=== PATIENT | male | born 1945 | race Caucasian/White ===

== ENCOUNTER 2020-10-26 06:00 | Day surgery (SDC) | payer MEDICARE, OTHER ==
[2020-10-23 09:40] VITALS: BP 151/76
--- NOTE | 2020-10-23 09:57 | PCM.EKG ---
[facility] Test Date: 2020-10-23 Test Time: 10:55:04 Pat Name: PINKY LARA Department: Room: 330 Gender: M Lead Pl Sql Developer: JAMEL : 1945 Requested By: REJI HERCULES Order Number: [id number] Reading MD: Reji Hercules Measurements Intervals [place] Rate: 62 P: 105 OR: 200 QRS: -63 QRSD: 180 T: 86 QT: 464 QTc: 470 Interpretive Statements AV sequential or dual chamber electronic pacemaker No previous ECG available for comparison Electronically Signed On 11-05-2020 10:55:29 TENTS ASSEMBLER by Reji Hercules Please click the below link to view image of tracing.
[2020-10-23 10:17] LABS: BASOPHIL % 0.4 % (0.0-0.2); EOSINOPHIL # 0.2 10^3/uL (0.0-0.2); EOSINOPHIL % 3.7 % (0.0-5.0); LYMPHOCYTES % 18.6 % (24.0-44.0); MONOCYTES # 0.5 10^3/uL (0.3-0.8); MONOCYTES % 8.9 % (5.0-12.0); NEUTROPHIL # 3.7 10^3/uL (1.8-7.7); NEUTROPHILS % 68.2 % (41.0-85.0); PLATELET COUNT 168 10^3/uL (150-400); RED CELL DISTRIBUTION WIDTH 13.9 % (11.5-14.5)
[2020-10-23 10:47] LABS: CALCIUM 9.2 mg/dL (8.4-10.5); CARBON DIOXIDE 25.9 mmol/L (20.0-32)
--- NOTE | 2020-10-23 11:00 | DIREP ---
PROCEDURE:CHEST 2 VIEWS COMPARISON:None. INDICATIONS:PRE-OP HEART CATH, ABNORMAL STRESS TEST FINDINGS: LUNGS/PLEURA:No focal consolidation, pleural effusion, or pneumothorax. VASCULATURE:Unremarkable pulmonary vasculature. Calcified, tortuous aorta. CARDIAC:Heart size within normal limits. Status post median sternotomy. Left chest wall pacemaker. MEDIASTINUM:Normal. No visible mass or adenopathy. BONES:Degenerative change without evidence of acute osseus abnormality. OTHER:Negative. CONCLUSION: 1. No acute cardiopulmonary process. Dictated by: Alberto Maxwell MD on 10/23/2020 at 10:58 AM
[~2020-10-26] VITALS: Ht 177.8 cm; Wt 73.0 kg
[~2020-10-26 06:00] MED LIST: ALLO300T PO; ASPI-667 PO; FERR240T2 PO; FINA5TAB4 PO; FURO20TA3 PO; GLIP5TAB10 PO; LEVO50TA6 PO; LYSI500T8 PO; METO25TA4 PO; MULT1TAB13 PO; PHENERGAN PO ONE; POTA15TA9 PO; ROSU40TA PO; VALIUM PO ONE
[2020-10-26] MEDS ORDERED: GLIM4TAB8 PO (06:17)
[2020-10-26] MEDS: NS 1000ML 1,000 ML IV SCH ×3 (06:25→21:30)
[2020-10-26 06:26] VITALS: BP 154/84
[2020-10-26] MEDS ORDERED: HEPARIN ONE (06:46)
[2020-10-26] MEDS ORDERED: XYLOCAINE ONE (06:47)
[2020-10-26] MEDS ORDERED: VERSED ONE (06:47)
[2020-10-26] MEDS ORDERED: SUBLIMAZE ONE (06:47)
[2020-10-26 07:45] LABS: CALCIUM 7.8 mg/dL (8.4-10.5); CARBON DIOXIDE 24.6 mmol/L (20.0-32)
[2020-10-26] MEDS ORDERED: LASIX PO SCH (08:00)
--- NOTE | 2020-10-26 08:50 | NUR ---
PATIENT ARRIVED TO UNIT VIA BED FROM WATER QUALITY MANAGER. PROCEDURE POSTPONED PER DR DICKERSON, AT BEDSIDE. RENAL US TODAY. MAY PROCEED FOR CARDIAC CATH TOMORROW PENDING RESULTS OF RENAL US. PATIENT VERBALIZED UNDERSTANDING OF POC. ORIENTED TO UNIT/ROOM/USE OF CALL LIGHT/VISITING HOURS - AT BEDSIDE.
[2020-10-26 08:54] VITALS: BP 161/83
[2020-10-26] MEDS: SYNTHROID PO SCH ×2 (09:00→21:31)
[2020-10-26] MEDS: NS 1000ML/KCL 20MEQ 1,000 ML IV SCH ×3 (10:35→23:44)
[2020-10-26] MEDS: AMARYL PO SCH (10:37)
[2020-10-26] MEDS: ZYLOPRIM PO SCH (10:37)
[2020-10-26] MEDS: ASPIRIN PO SCH (10:37)
[2020-10-26] MEDS: PROSCAR PO SCH (10:39)
[2020-10-26] MEDS: LOPRESSER PO SCH ×2 (10:39→20:24)
--- NOTE | 2020-10-26 11:21 | HPH ---
ADMIT DATE: 10/26/2020 CHIEF COMPLAINT: Abnormal myocardial perfusion scan, acute kidney injury, diabetic, post-bypass status, admitted for IV hydration before undertaking heart catheterization. HISTORY OF PRESENT ILLNESS: The patient is a 74-year-old white male who has known history of atherosclerotic heart disease and has had multivessel coronary artery bypass surgery in [place] in 1999 and subsequently in 2012 underwent 3 stents and has a pacemaker inserted in 1999 and he came with history of dyspnea on exertion with underlying daz-xrnxgfz-mfphjllqv diabetes and mild hypertension and dyslipidemia, on rosuvastatin 40 mg once a day and was noted to have global hypoperfusion with some degree of reperfusion and global hypokinesis and 40% ejection fraction and had dyspnea on exertion, in view of his multiple stents in last evaluation in 2012 with an abnormal myocardial perfusion scan at the present time with 40% ejection fraction. The patient was advised to have a cardiac catheterization and graft angiography. He had a creatinine of 1.5 in the clinic and was told to increase his fluid intake, but creatinine went up to 1.71 and a BUN of 37. He is now on Lasix 20 mg once a day, hence admitted for 24-hour observation for IV fluid hydration to improve his kidney function and renal sonogram to assess his kidney size before undertaking parenteral radiographic contrast graft angiography. ALLERGIES: PENICILLIN. MEDICATIONS: Lysine 500 mg daily, aspirin 81 mg once a day, metoprolol 25 mg once a day, glipizide 5 mg daily, Crestor 40 mg once a day, allopurinol 300 mg once a day, Lasix 20 mg once a day, lisinopril 5 mg once a day, potassium citrate one tablet daily, Levothroid 50 mcg once a day, finasteride 5 mg once a day. PAST MEDICAL HISTORY: History of CAD, triple vessel coronary artery disease and post bypass surgery, post-triple stents and has a Biotronik pacer implanted, generator change 3 times, diabetes, dyslipidemia, hypothyroidism. No history of TIA or CVA. No history of any cancer. Past history of glaucoma in the left eye. PAST SURGICAL HISTORY: Appendectomy in 1962, rectal fissure operation in the past and pacer insertion initially in 1999, colonoscopy in 2006, hemorrhoidectomy, laparoscopic hemorrhoidectomy, kidney stones post-lithotripsy, vasectomy, cataract surgery, left leg hematoma evacuation due to injury in the past, tonsillectomy, arthroscopic knee surgery, bilateral knee surgery in the past. Generator change on his device about 3 times, last one was done [address] Koroma in [place]. History of nephrolithiasis and post-lithotripsy. REVIEW OF SYSTEMS: Reveal fatigue, weakness, shortness of breath, leg cramps. PHYSICAL EXAMINATION: GENERAL: Alert, awake, oriented. VITAL SIGNS: He is 177 cm, , BMI is low, lean and asthenic built, with 97 temperature, pulse is 62, respirations 18 and 150/76 blood pressure and 99% saturation on room air. HEENT: Unremarkable. NECK: No JVD, no carotid bruits. CHEST: Thin chest wall. LUNGS: Poor air entry bilaterally. HEART: Sounds S1 and S2 normal. Systolic murmur grade 3/6 at the left sternal border, appears to be more of an aortic sclerosis. Echo did not show any aortic stenosis. ABDOMEN: Soft, nontender, no organomegaly. EXTREMITIES: Distal pulses fairly well felt. NEUROLOGIC: No focal neuro deficit. No dependent edema. IMAGING STUDIES: EKG: AV paced rhythm, prolonged SC interval, primarily A-paced on EKG done during his stress study. IMPRESSION: Provoked myocardial ischemia, abnormal myocardial perfusion scan, acute kidney injury, diabetic, hypertension, coronary artery disease, post bypass surgery, post-pacer. PLAN: At this time, we will admit for 24 hours and IV fluids at 125 mL an hour. Repeat renal profile, renal sonogram. Once the creatinine is below 1.5, we will do cardiac catheterization. Johnson Hercules MD DR: ROSARIO/louis JOB# [id number] DAVID
[2020-10-26 12:11] VITALS: BP 143/77
--- NOTE | 2020-10-26 15:53 | DIREP ---
PROCEDURE:US KIDNEYS-BILAT COMPARISON:None. INDICATIONS:assess size of kidneys has diabetic nephropathy. TECHNIQUE:Ultrasound examination was performed of the kidneys and bladder. FINDINGS: RIGHT KIDNEY:10.1 x 6.5 x 5.7 cm. Cortex: 1.1 cm LEFT KIDNEY: 10.7 x 7.5 x 7.4 cm. Cortex: 1.1 cm BLADDER (pre-void):7.5 x 6.0 x 8.1 cm. Volume 252.5 ml BLADDER (post-void): 5.1 x 4.3 x 6.0 cm. Volume 68.2 ml MICTURATED VOLUME: 184.3 ml RIGHT KIDNEY: There is no hydronephrosis or suspicious cortical lesion. A 2.7 x 1.6 x 2.1 cm cyst is identified in the medial aspect of the mid pelvis. Nonobstructing calculi are visualized. LEFT KIDNEY: There is no hydronephrosis or suspicious cortical lesion. Nonobstructing calculi are visualized. BLADDER:Normal. Bilateral ureteral jets visualized. No visible wall thickening, mass, or calculus. OTHER:The prostate appears large in size measuring 4.9 x 4.3 x 3.3 cm, Volume 36.2 ml. CONCLUSION: 1. Nonobstructing calculi are identified in each kidney. No evidence of hydronephrosis. 2. No focal pathology in the urinary bladder itself. Bilateral ureteral jets are noted. 3. Prostate gland is enlarged. Dictated by: CLARI Physician on 10/26/2020 at 01:48 PM ac
[2020-10-26 17:13] VITALS: BP 137/82
[2020-10-26] MEDS ORDERED: CRESTOR PO ONE (19:30)
[2020-10-26 20:09] VITALS: BP 139/83
[2020-10-26 20:47] LABS: APPEARANCE,URINE CLEAR (CLEAR); BILIRUBIN,URINE NEGATIVE (NEGATIVE); UA COLOR YELLOW (YELLOW); UROBILINOGEN,URINE 0.2 (NEGATIVE)
[2020-10-26] MEDS ORDERED: CRESTOR PO SCH (21:00)
[2020-10-27] VITALS (15 sets, daily range): BP systolic 124–159; BP diastolic 56–90
[2020-10-27 04:49] LABS: CALCIUM 8.5 mg/dL (8.4-10.5); CARBON DIOXIDE 25.7 mmol/L (20.0-32)
--- NOTE | 2020-10-27 05:01 | NUR ---
0436 client's blood glucose was 67 at 0436 notified with Charge nurse that client was NPO and glucose was 67. 0437 RN gave client 60 ml of orange juice with a couple packs of sugar. 0500 rechecked BG and it was 162.
[2020-10-27] MEDS: NS 1000ML 1,000 ML IV SCH ×2 (06:00→14:00)
[2020-10-27] MEDS ORDERED: NS 1000ML 1,000 ML ONE (06:47)
[2020-10-27] MEDS ORDERED: SUBLIMAZE ONE (06:47)
[2020-10-27] MEDS ORDERED: HEPARIN ONE (06:47)
[2020-10-27] MEDS ORDERED: VERSED ONE (06:48)
[2020-10-27] MEDS ORDERED: XYLOCAINE ONE (06:48)
[2020-10-27] MEDS: NS 1000ML/KCL 20MEQ 1,000 ML IV SCH (08:00)
[2020-10-27] MEDS: AMARYL PO SCH (08:00)
[2020-10-27] MEDS: PROSCAR PO SCH (09:00)
[2020-10-27] MEDS: ASPIRIN PO SCH (09:00)
[2020-10-27] MEDS: ZYLOPRIM PO SCH (09:00)
[2020-10-27] MEDS: LOPRESSER PO SCH (09:00)
[2020-10-27] MEDS ORDERED: PHENERGAN PO ONE (11:30)
[2020-10-27] MEDS ORDERED: VALIUM PO ONE (11:30)
--- NOTE | 2020-10-27 11:50 | NUR ---
Patient left unit via stretcher to Cardiac Cryptologist.
--- NOTE | 2020-10-27 12:45 | NUR ---
PATIENT ARRIVED TO UNIT FROM PRODUCT SUPPORT CONSULTANT. R GROIN ANGIO SEAL PLACED @ 1234. POST PROCEDURE VS MONITORING INITIATED. PATIENT WITH INTERMITTENT NAPPING. AT BEDSIDE. NO ACUTE CARDIOPULMONARY CHANGES NOTED.
[2020-10-27] MEDS ORDERED: LOSA25TA12 PO (15:10)
--- NOTE | 2020-10-27 15:45 | NUR ---
SIT UP TIME: 1445 TOLERATED DIET WITHOUT ANY GI UPSET AMBULATION TIME: IN ROOM 1530 AMBULATION TIME: HALLWAY 1545 R/E/E/D/A ASSESSESSMENT R GROIN CATH SITE: DRESSING CDI.
--- NOTE | 2020-10-27 16:04 | NUR ---
PIV REMOVED WITHOUT ANY DIFFICULTY. CATHETER INTACT. AT BEDSIDE.
--- NOTE | 2020-10-27 16:15 | NUR ---
DISCHARGE INSTRUCTIONS REVIEWED WITH OPPORTUNITY FOR QUESTIONS AND ANSWERS. PATIENT DISCHARGED HOME;SELF-CARE.
--- NOTE | 2020-10-27 19:09 | CCRH ---
DATE OF SERVICE: 10/27/2020 HEART CATHETERIZATION REPORT PRECATHETERIZATION DIAGNOSES: Coronary artery disease, post bypass surgery, abnormal myocardial perfusion scan, chronic kidney disease, nephrolithiasis, benign prostatic hypertrophy, history of congestive heart failure, AV sequential pacer, hypertension, hypertensive heart disease in view of abnormal myocardial perfusion scan, heart catheterization done to assess for ischemic substrate. POSTCATHETERIZATION DIAGNOSES: Left main was 100% occluded. LAD was 100% occluded. The NEGRON graft to the LAD was patent, but beyond the insertion of the graft, the LAD itself was a very small caliber vessel with mild diffuse atherosclerosis, but no discrete flow obstructive lesion was documented in the LAD after the insertion of the NEGRON graft. Circumflex is 100% occluded at the point of origin. The saphenous vein graft to the obtuse marginal branch was fully patent, filling the obtuse marginal branch and the jena circumflex and it was inserted in the prebifurcation area filling the whole circumflex system. Right coronary artery was 100% occluded. The saphenous vein graft over the right coronary artery was fully patent, filling the distal right coronary artery with some luminal irregularity in the distal right coronary artery. Left ventricle is normal in size with good wall contractility, ejection fraction of 55%. ANESTHESIA: 2% lidocaine. PREOPERATIVE MEDICATIONS: Phenergan 25 mg p.o., Valium 2.5 mg p.o., Versed 1 mg IV, fentanyl 25 mcg IV. ANTICOAGULATION: Heparin 2000 units intra-arterially, 2000 units in the flush solution, 1000 units in the dye solution. Dye used Visipaque, total amount 150 mL. CATHETERS: JL4 6-Citizen Of [place], JR4 6-Citizen [place] angled pigtail catheter. ARTERIAL TIME: 13 minutes. FLUOROSCOPIC TIME: 5.5 minutes. PROCEDURES: Left heart catheterization, bilateral selective coronary arteriography, left ventriculography, saphenous vein graft cineangiography, NEGRON graft cineangiography, Angio-Seal deployed. Hemostasis achieved. Under local anesthesia, right femoral artery was punctured percutaneously by arterial needle, guide wire passed in right femoral artery, 6-Citizen Of [place] Cordis sheath introduced, side port of the sheath used for femoral arterial pressure monitoring. Sheath anchored with suture. Left Rose catheter introduced over guide wire into ascending aorta left coronary artery cannulated and left coronary angiography performed in [place]UR[place]DI[place] and GIBSON projections with craniocaudal applications to visualize all branches. Left catheter exchanged for right coronary catheter and right coronary angiography performed in [place]DI[place] and GIBSON. This catheter exchanged for 6-Citizen Of [place] pigtail catheter and catheter crossed the aortic valve and left ventricular LVEDP measured and LV gram performed in 30 degrees GIBSON view with 30 mL Omnipaque dye and panning of descending aorta attempted. Patient tolerated procedure well. No complications of procedure. Angio-Seal deployed for hemostasis. LVEDP is 12 mm, LV pressure is 168/12, femoral artery pressure 150/76. No gradient across the aorta on pullback of the central catheter. FINAL CONCLUSION: A 100% occlusion of all 3 major jena epicardial vessels at the point of origin. Patent NEGRON graft to the LAD with distal LAD showing diffuse atherosclerosis and patent vein graft to the obtuse marginal branch and patent vein graft to the distal right coronary artery with intact LV systolic function. RECOMMENDATIONS: Optimization of medical therapy. Incidental finding was that there were 2 active fixation leads in the ventricle and one of the leads showed no fracture with subclavian crush on fluoroscopy and cineangiography on visualizing the device in the left infraclavicular region and the atrial lead is positioned more laterally, but it is functional. Atrial pacing is documented and the 2 ventricular leads were very close to each other in the ventricle. One needs to be concerned about noise and the patient will be seen back in the office in 2 weeks. Jthand MD ANKIT Hercules: ROSARIO/louis JOB# [id number]
--- NOTE | 2020-10-27 19:16 | DSH ---
DATE OF DISCHARGE: 10/27/2020 FINAL DIAGNOSES: Abnormal myocardial perfusion scan, hypertension, coronary artery disease, post bypass surgery, provoked ischemic substrate, pacemaker, diabetes, acute kidney injury, admitted for hydration to improve kidney function, nephrolithiasis, benign prostatic hypertrophy. Please refer to my history and physical to the point of my impression. HOSPITAL COURSE: The patient is a 74-year-old white male who had a creatinine of 1.5 and has CAD and post bypass surgery over 20 years ago and underwent a perfusion study in the office, which showed suggestion of mild global hypoperfusion with some degree of reversibility and ischemic substrate and had LV ejection fraction around 45-46% and he had symptoms of dyspnea and shortness of breath and was atrially pacing and had 2 ventricular leads with one fractured and atrial lead, which is functional with underlying atrial pacing and had significant ST depression and his perfusion scan was abnormal. His creatinine was 1.5 in the office. When he came for cardiac catheterization and graft angiography, his creatinine has jumped to 1.73, BUN was elevated to 40. There was acute kidney injury. He was hydrated, creatinine came up to 1.65 and Visipaque was used and cardiac catheterization was done on 10/27/2020 and his left main was 100% occluded distally with total occlusion of the LAD and circumflex and right coronary occluded at the ostium. NEGRON to the LAD graft was fully patent with distal LAD showing diffuse atherosclerosis and vein graft to the circumflex obtuse marginal branch was fully patent and vein graft to the distal right coronary artery was patent and LV function was intact. The patient was well hydrated at the present time, he is dismissed home on losartan 25 mg once a day, which was added along with allopurinol 300 mg once a day, aspirin 81 mg once a day, ferrous gluconate 240 mg daily for his underlying iron deficiency, finasteride 5 mg once a day, Lasix 20 mg once a day, glimepiride 4 mg once a day, Levothroid 50 mcg once a day, lysine 500 mg once a day, metoprolol 25 mg twice a day, multivitamin once a day, potassium 10 mEq once a day, Crestor 40 mg once a day, to see him back in the clinic in 2 weeks and we will do a device check and clinical assessment. Angio-Seal was deployed. Hemostasis was achieved. We will probably repeat the creatinine on post discharge. Johnson Hercules MD DR: ROSARIO/louis JOB# [id number]
== END 2020-10-27 15:07 | disposition home or self-care (01) ==
LOC: SDC 06:00 → UNDOADMOB 07:49 → MS 07:49 → SDC 10-27 15:07 → UNDODISOB 10-27 16:15
PROVIDERS: ATTEND Specialist
DX: I25.10 Atherosclerotic heart disease of native coronary artery without angina pectoris (principal); I25.82 Chronic total occlusion of coronary artery; E11.22 Type 2 diabetes mellitus with diabetic chronic kidney disease; I13.0 Hypertensive heart and chronic kidney disease with heart failure and stage 1 through stage 4 chronic kidney disease, or unspecified chronic kidney disease; N18.9 Chronic kidney disease, unspecified; I50.32 Chronic diastolic (congestive) heart failure; E78.5 Hyperlipidemia, unspecified; E03.9 Hypothyroidism, unspecified; N40.0 Benign prostatic hyperplasia without lower urinary tract symptoms; Z88.1 Allergy status to other antibiotic agents; Z88.0 Allergy status to penicillin; Z79.82 Long term (current) use of aspirin; Z79.84 Long term (current) use of oral hypoglycemic drugs; Z79.890 Hormone replacement therapy; Z98.890 Other specified postprocedural states; Z95.1 Presence of aortocoronary bypass graft; Z82.49 Family history of ischemic heart disease and other diseases of the circulatory system; Z80.9 Family history of malignant neoplasm, unspecified; Z90.49 Acquired absence of other specified parts of digestive tract; Z90.89 Acquired absence of other organs; Z87.442 Personal history of urinary calculi; Z98.52 Vasectomy status
CPT/HCPCS: 36415 ×3; 71046; 76770; 80048; 80053 ×2; 81003; 82948 ×6; 84550; 85025; 85610; 85730; 93005; 93459; 99152; C1760; C1894 ×3; J1644 ×4; J2250 ×2; J3010 ×2; J7030 ×4; Q9967; G0378; Q9966

== ENCOUNTER 2022-07-05 13:36 | Inpatient (IN) | payer MEDICARE, OTHER ==
[~2022-07-05] VITALS: Ht 177.8 cm; Wt 76.5 kg
[~2022-07-05 13:36] MED LIST changes: -NITR0.4T26 SL; -RANO500T2 PO
[2022-07-05] MEDS ORDERED: NS 1000ML 1,000 ML ONE ×2 (13:58→14:19)
[2022-07-05] MEDS ORDERED: HEPARIN ONE (14:19)
[2022-07-05] MEDS ORDERED: SUBLIMAZE ONE (14:20)
[2022-07-05] MEDS ORDERED: VERSED ONE (14:20)
[2022-07-05] MEDS ORDERED: XYLOCAINE ONE (14:20)
--- NOTE | 2022-07-05 14:23 | PCM.EKG ---
[facility] Test Date: 2022-07-05 Test Time: 14:16:58 Pat Name: PINKY LARA Department: Room: 332 A Gender: M Dumpman: : 1945 Requested By: REJI DICKERSON Order Number: [id number] Reading MD: Measurements Intervals [place] Rate: 76 P: NV: 366 QRS: 73 QRSD: 91 T: -89 QT: 398 QTc: 448 Interpretive Statements Atrial-paced rhythm Repol abnrm, prob ischemia, anterolateral lds Baseline wander in lead(s) V3 Compared to ECG 10/23/2020 10:55:04 Early repolarization now present Possible ischemia now present AV dual-paced complex(es) or rhythm no longer present Please click the below link to view image of tracing.
--- NOTE | 2022-07-05 14:30 | NUR ---
admit note. Pt to rm 332, oriented to rm. changed into gown. to bed, IV started 20 g to r wrist x1 attempt aseptically, NS infusing per pump at 75ml/hr per written order. Tele applied after EKG obtained by RT. History obtained. at bedside and aware of plan of care.
[2022-07-05 14:42] VITALS: BP 121/65
[2022-07-05] MEDS ORDERED: RANEXA PO STA (17:01)
[2022-07-05] MEDS ORDERED: NS 1000ML 1,000 ML IV SCH (17:30)
[2022-07-05] MEDS ORDERED: NS 1000ML/KCL 20MEQ 1,000 ML IV SCH (18:30)
[2022-07-05] MEDS: NS 1000ML/KCL 20MEQ 1,000 ML IV SCH (18:30)
[2022-07-05 19:45] VITALS: BP 107/51
--- NOTE | 2022-07-05 23:25 | HPH ---
DICTATOR NAME: Johnson Hercules MD CHIEF COMPLAINT: Chest heaviness, tightness, ongoing chest pain for several days. HISTORY OF PRESENT ILLNESS: The patient is a 76-year-old white male with known history of PAD and had multivessel coronary artery bypass surgery. He underwent cardiac catheterization in 2020, and at that time, his grafts were patent, but he had critical nome disease with total occlusion of all his nome vessels and his ejection fraction was around 40% and he came in on the of this month to my office with chest heaviness and tightness, was given Ranexa. His troponin was negative and he came for a perfusion study today and he had inferior ischemic substrate and was having significant chest pain in spite of him being on Ranexa and his chest pain had lasted several hours. In view of unstable angina manifestation, he was admitted in observation to undergo cardiac catheterization, but his creatinine was 2, hence the cause of worsening kidney function with him having bilateral nephrolithiasis without any obstructive findings and prostate enlargement. His creatinine was high and he was to be given IV hydration to improve the creatinine before undertaking heart catheterization if creatinine improved on 07/06/2022. ALLERGIES: PENICILLIN. MEDICATIONS: He is insulin-dependent diabetic, on Levemir 15 units daily; losartan 25 mg once a day; glimepiride 4 mg once a day; aspirin 81 mg once a day; Crestor 40 mg once a day; Lasix 20 mg once a day; lisinopril 20 mg once a day; potassium 10 mEq once a day; Levothroid 50 mcg once a day; finasteride 5 mg once a day; metoprolol 25 mg daily. PAST MEDICAL HISTORY: History of chronic stable angina and now having unstable angina post-bypass status, hypertension, hypertensive heart disease, chronic systolic heart failure and he does have a pacemaker and is diabetic. PAST SURGICAL HISTORY: Other history, he had angioplasty before he had bypass surgery. Bypass was done in [place], stents were done in 2012, pacer was inserted in 1999. Has had post-appendectomy, rectal fissure operation, hemorrhoidectomy, kidney stones, cataract surgery, left leg hematoma evacuation due to the injury in the past, eye surgery, arthroscopic knee surgery, bilateral knee surgery. Pacer generator change 3 years ago, it was done in [place]. SOCIAL HISTORY: He is a nonsmoker. No alcohol abuse. FAMILY HISTORY: Mother, sister, both are diabetic. Grandparents were diabetic also and hypertensive, cancer runs in the family. REVIEW OF SYSTEMS: Revealed the difficulty in mobility and fatigue, shortness of breath, chest heaviness, tightness. PHYSICAL EXAMINATION: GENERAL: He appeared ill and he was having chest pain when I saw him today. Lean, thin, aesthetically built. VITAL SIGNS: He is 170 pounds, 5 feet 10 inches and 130/76 blood pressure, respirations 16, temperature 97.4. HEENT: Unremarkable. NECK: No JVD, no carotid bruits. LUNGS: Showed poor air entry bilaterally. CHEST: He has had increased AP diameter, barrel-shaped chest. RESPIRATORY: Chest expansion. HEART: S1, S2 normal. ABDOMEN: Soft, nontender, no organomegaly. EXTREMITIES: Distal pulses were poorly felt. NEUROLOGIC: No focal neuro deficit [] documented. DIAGNOSTIC DATA: An EKG has shown AV paced rhythm, poor R-wave progression V1 through V6, nonspecific ST-T wave changes. [] and 58% V paced on the device check recently. IMPRESSION: Crescendo angina, coronary artery disease, post bypass surgery, abnormal myocardial perfusion scan, inferior ischemia, acute kidney injury, bilateral nephrolithiasis. PLAN: At this time, admit the patient in the hospital. We will start IV hydration to improve his kidney function and do perform cardiac catheterization. Further management depending on the clinical course. Johnson Hercules MD DR: ROSARIO/PALAK/BROOKE/MELISSA TID: [id number] RECEIPT: [id number]
[2022-07-05] MEDS: LOPRESSER PO SCH (23:31)
[2022-07-06] VITALS: BP 140/75
[2022-07-06] MEDS: NS 1000ML/KCL 20MEQ 1,000 ML IV SCH ×3 (03:48→18:30)
[2022-07-06 03:52] VITALS: BP 119/72
[2022-07-06] MEDS: LOPRESSER PO SCH ×2 (09:21→20:20)
[2022-07-06] MEDS: PROSCAR PO SCH (09:21)
[2022-07-06] MEDS: ASPIRIN PO SCH (09:21)
[2022-07-06 09:49] VITALS: BP 139/76
[2022-07-06] MEDS: ZYLOPRIM PO SCH (10:24)
[2022-07-06] MEDS: RANEXA PO SCH ×2 (10:24→20:20)
[2022-07-06] MEDS: SYNTHROID PO SCH (10:24)
--- NOTE | 2022-07-06 11:29 | NUR ---
DISCHARGE PLAN - CLINICALS TO PCP ROBEL LEVY NP [email or web address] AND VISITED WITH PATIENT ABOUT DISCHARGE PLANS, NEEDS, AND GOALS THIS AM. PATIENT CURRENTLY [email or web address] WITH SPOUSE IN [place] AND IS IND WITH ALL ADL'S AND ACTIVE AND DRIVES DAILY. PATIENT HAS [email or web address] AND DENIES NEED FOR ANY OTHER DME OR SERVICES OFFERED. PATIENT IS SCHEDULED FOR A HEART CATH@10 AM THIS MORNING WITH DR DICKERSON. PATIENT REPORTS THAT HIS PCP IS ROBEL IN [email or web address]. CM OFFERED TO SET PATIENT UP WITH A F/U APPT AND PATIENT DECLINES. PATIENT AGREEABLE FOR CM TO FAX PATIENT'S CLINICALS AFTER DISCHARGE. PATIENT SPOUSE SIGNS [facility] CHOICE LETTER OF THE SAME FOR CHART. PATIENT INSTRUCTED IF ANYTHING CHANGES TO LET NURSE KNOW AND CM WILL COME BACK AND VISIT. CM CONTACTED [facility] AND PATIENT'S PCP IS ROBEL LEVY NP. FAX NUMBER OBTAINED #[phone] TO FAX CLINICALS AFTER DISCHARGE. Addendum: 07/07/22 at 1247 by Irma Brasher RN,Case Managemen ADDIE CM FAXED PATIENT'S CLINICALS TO ROBEL LEVY [phone]. INFORMED OF PATIENT'S HEART CATH AND IF F/U APPT NEEDED FOR OFFICE TO CONTACT PATIENT. FAX CONFIRMATION CONFIRMED COMPLETE.
[2022-07-06 11:40] LABS: CARBON DIOXIDE 26.5 mmol/L (20.0-32)
--- NOTE | 2022-07-06 11:53 | NUR ---
STATUS PT'S CREATININE STILL ABOVE 1.7, THIS NURSE RELAYED INFORMATION TO DR. DICKERSON VIA TELEPHONE, AND RECEIVED ORDERS TO GO AHEAD AND FEED PT LUNCH, AND CANCEL HEART CATH FOR TODAY.
[2022-07-06 16:03] VITALS: BP 126/75
[2022-07-06 19:55] VITALS: BP 132/67
[2022-07-06] MEDS ORDERED: CRESTOR PO SCH (21:00)
[2022-07-07] VITALS: BP 126/65
[2022-07-07] MEDS: NS 1000ML/KCL 20MEQ 1,000 ML IV SCH (02:30)
--- NOTE | 2022-07-07 02:59 | PNH ---
DATE: 07/06/2022 DICTATOR NAME: Johnson Hercules MD SUBJECTIVE: The patient came with unstable angina manifestations, CAD post-bypass surgery, has got a pacemaker and his creatinine was over 2, was given IV hydration and creatinine now is about 1.71. It has slightly improved from this morning to 1.77. We will probably continue hydration and bring it further down because he is insulin-dependent diabetic and will do cardiac catheterization and assess his coronary anatomy since he is post-bypass with significant unstable angina manifestations for several days. We will probably do the catheterization on 07/07/2022. OBJECTIVE: VITAL SIGNS: Stable, 98 temperature, pulse 70, respirations 18, 139/76 blood pressure. HEENT: Unremarkable. CHEST: Emphysematous chest. LUNGS: Poor air entry bilaterally. HEART: Sounds normal. LABORATORY DATA: Rest of the labs are acceptable. His ____ was 133. We will continue IV hydration and repeat basic profile on ____. Johnson Hercules MD DR: ROSARIO/EKT/DEE DEE TID: [id number] RECEIPT: [id number]
[2022-07-07 04:47] VITALS: BP 134/79
[2022-07-07 05:17] LABS: CARBON DIOXIDE 26.3 mmol/L (20.0-32)
[2022-07-07] MEDS: SYNTHROID PO SCH (05:48)
[2022-07-07 07:58] VITALS: BP 146/79
[2022-07-07] MEDS ORDERED: RANO500T2 PO (08:18)
[2022-07-07] MEDS: ASPIRIN PO SCH (08:24)
[2022-07-07] MEDS: LOPRESSER PO SCH (08:24)
[2022-07-07] MEDS: PROSCAR PO SCH (08:24)
[2022-07-07] MEDS: ZYLOPRIM PO SCH (08:24)
[2022-07-07] MEDS: RANEXA PO SCH (08:24)
[2022-07-07] MEDS ORDERED: NITR0.4T26 SL (09:52)
--- NOTE | 2022-07-07 09:52 | NUR ---
ROOM AIR CHALLENGE CONDUCTED PAT ON 1LPM NC - SPO2 96% PAT TAKEN OFF O2 PAT WAS AMBULATED - SPO2 DROPPED TO 82% PAT INSTRUCTED TO SIT DOWN AND TAKE A FEW BREATHS - SPO2 GEOVANNA TO 85%; SPO2 MAINTAINED AT 85% WHILE AT REST PAT PLACED BACK ON 1 LPM NC - SPO2 GEOVANNA TO 93% PAT STATED NO SOB OCCURRED DURING ROOM AIR CHALLENGE Addendum: 07/07/22 at 0955 by Cathy Osei RRT, Contract RT Amended: Links added.
--- NOTE | 2022-07-07 10:25 | NUR ---
DISCHARGE DISCHARGE INSTRUCTIONS GIVEN BOTH VERBALLY AND WRITTEN AT THIS TIME. PATIENT EDUCATED OVER NEW RX'S, FOLLOW UP WITH TUAN, PATIENT VERBALIZES UNDERSTANDING, WITH NO QUESTIONS OR CONCERNS NOTED. IV REMOVED VIA ASEPTIC TECHNIQUE, CATH TIP STILL INTACT, PATIENT TOLERATED WELL. PATIENT AMBULATED OFF UNIT WITH NURSING X1 TO PRIVATE AUTO ACCOMPANIED BY SPOUSE. RELINQUISHED CARE OF PATIENT.
[2022-07-07 10:27] VITALS: BP 146/79
--- NOTE | 2022-07-08 09:58 | DSH ---
DATE OF DISCHARGE: 07/07/2022 DICTATOR NAME: Johnson Hercules MD OUTPATIENT OBSERVATION IMPRESSION: Abnormal myocardial perfusion scan, CAD, post-bypass surgery, unstable angina, chronic renal failure, bilateral nephrolithiasis, nonobstructive, prostatic hypertrophy, cardiac catheterization canceled because of inability to improve renal function with IV fluid infusion, diabetes mellitus, hypertension, hypertensive heart disease. Please refer to my physical to the point of my impression. HOSPITAL COURSE: The patient is a 76-year-old white male who had bypass surgery several years ago and he has a pacemaker also and he presented with significant history of angina last week, was given Ranexa and then he continued to have chest heaviness, tightness troponin was negative and his grafts were open last year and in view of ongoing refractory angina, was admitted, but his creatinine was over 2 and was given IV hydration on 07/05/2022, continued through 07/06/2022 and his creatinine improved to 1.78 and in view of his diabetic status with nephrolithiasis and prostatic hypertrophy and possible obstructive uropathy, I did not feel inclined to do a cardiac catheterization at this time and sent him home and check with his urologist and once the obstructive uropathy is improved, maybe his creatinine will come down and in the diabetic status, will probably need to be having around 1.5 or a declining trend before cardiac catheterization is considered and he was sent home on nitroglycerin on p.r.n. basis and Ranexa 500 mg twice a day, allopurinol 300 mg once a day, aspirin 81 mg once a day; ferrous gluconate 240 mg once a day, finasteride 5 mg once a day, Lasix 20 mg every 48 hours, glimepiride 4 mg once a day, Levothroid 50 mcg once a day, losartan 25 mg once a day, lysine 500 mg once a day, metoprolol 25 mg twice a day, multivitamin once a day, potassium 1 tablet daily, Crestor 40 mg once a day and he will check back in the clinic next week and oral p.o. fluids being forced, will have an appointment with a urologist and will see me back in the next week and we will repeat the renal profile. Johnson Hercules MD DR: ROSARIO/THONY CALLE: [id number] RECEIPT: [id number]
== END 2022-07-07 10:28 | disposition home or self-care (01) | DRG 303 ==
LOC: MS 13:36 → OBSVTOIN 13:36
PROVIDERS: ADMIT Specialist; ATTEND Specialist
DX: I25.110 Atherosclerotic heart disease of native coronary artery with unstable angina pectoris (principal); N17.9 Acute kidney failure, unspecified; I50.22 Chronic systolic (congestive) heart failure; N20.0 Calculus of kidney; E11.9 Type 2 diabetes mellitus without complications; I11.0 Hypertensive heart disease with heart failure; N40.0 Benign prostatic hyperplasia without lower urinary tract symptoms; Z79.4 Long term (current) use of insulin; Z83.3 Family history of diabetes mellitus; Z87.442 Personal history of urinary calculi; Z95.0 Presence of cardiac pacemaker; Z95.1 Presence of aortocoronary bypass graft; Z90.49 Acquired absence of other specified parts of digestive tract; Z79.899 Other long term (current) drug therapy
CPT/HCPCS: 36415; 80048; 80053; 82948; 93005; C1894; G0378; J1644; J2250; J3010; J7030

== ENCOUNTER → 2022-07-05 | Outpatient (CLI) | payer MEDICARE, OTHER ==
[~2022-07-05] MED LIST changes: +GLIM4TAB8 PO; +LOSA25TA12 PO; +NITR0.4T26 SL; -PHENERGAN PO ONE; +RANO500T2 PO; -VALIUM PO ONE
[2022-07-05 13:24] LABS: BASOPHIL % 0.3 % (0.0-0.2); EOSINOPHIL # 0.1 10^3/uL (0.0-0.2); EOSINOPHIL % 1.5 % (0.0-5.0); LYMPHOCYTES # 0.77 10^3/uL1 (1.0-4.8); LYMPHOCYTES % 11.3 % (24.0-44.0); MEAN CORP HGB 30.8 pg (26-34); MONOCYTES # 0.7 10^3/uL (0.3-0.8); MONOCYTES % 10.3 % (5.0-12.0); NEUTROPHIL # 5.2 10^3/uL (1.8-7.7); NEUTROPHILS % 76.5 % (41.0-85.0); PLATELET COUNT 163 10^3/uL (150-400); RED CELL DISTRIBUTION WIDTH 13.6 % (11.5-14.5)
[2022-07-05 14:03] LABS: CARBON DIOXIDE 29.6 mmol/L (20.0-32)
== END | disposition home or self-care (01) ==
LOC: NPLAB 13:16
PROVIDERS: ATTEND Specialist
DX: I10 Essential (primary) hypertension (principal); E11.9 Type 2 diabetes mellitus without complications; R07.9 Chest pain, unspecified; Z79.899 Other long term (current) drug therapy
CPT/HCPCS: 36415; 80053; 80061; 82306; 83036; 84436; 84443; 84484; 85025; 86140

== ENCOUNTER 2022-08-05 07:00 | Day surgery (SDC) | payer MEDICARE, OTHER ==
[2022-08-02 11:22] VITALS: BP 125/67
[2022-08-02 12:01] LABS: BASOPHIL % 0.4 % (0.0-0.2); EOSINOPHIL # 0.1 10^3/uL (0.0-0.2); EOSINOPHIL % 1.2 % (0.0-5.0); LYMPHOCYTES # 1.06 10^3/uL1 (1.0-4.8); LYMPHOCYTES % 15.7 % (24.0-44.0); MEAN CORP HGB 30.7 pg (26-34); MONOCYTES # 0.6 10^3/uL (0.3-0.8); MONOCYTES % 8.9 % (5.0-12.0); NEUTROPHILS % 73.5 % (41.0-85.0); PLATELET COUNT 178 10^3/uL (150-400)
--- NOTE | 2022-08-04 18:40 | HPH ---
ADMIT DATE: 08/05/2022 DICTATOR NAME: Johnson Hercules MD CHIEF COMPLAINT: Abnormal myocardial perfusion scan, history of crescendo angina, coronary artery disease, post bypass surgery. For cardiac catheterization, was admitted previously with a creatinine of over 2 and that come down to 1.67 and fur ironer given okay to undergo catheterization with IV contrast dye. HISTORY OF PRESENT ILLNESS: The patient is a 76-year-old white male with known history of CAD post-multivessel bypass surgery and he had a catheterization done in 10/2020 and his grafts were patent. EF was normal. Has a pacer also and the pacer check was acceptable. At the present time, he has been having chest heaviness, tightness and was needed a cardiac catheterization and perfusion scan is abnormal with multi-segmental ischemia at the present time. His creatinine is normal and he will undergo cardiac catheterization on 08/05/2022. ALLERGIES: PENICILLIN. MEDICATIONS: Ranexa 1 g twice a day, insulin-dependent diabetic, Levemir 15 units daily, losartan 25 mg once a day, glimepiride 2 mg once a day, lysine 500 mg once a day, aspirin 81 mg once a day, Crestor 40 mg once a day, allopurinol 300 mg once a day, Lasix 20 mg once a day, potassium 10 mEq once a day, Levothroid 50 mcg once a day, finasteride 5 mg once a day, metoprolol 25 mg once a day. PAST MEDICAL AND SURGICAL HISTORY: CAD post bypass surgery, hypertension, hypertensive heart disease, chronic systolic heart failure, pacemaker, insulin-dependent diabetes mellitus and he has a Biotronik device, his grafts were patent a year ago, history of angioplasty, heart surgery in 1999 in [place], [place], cardiac stents in 2012 and pacer insertion in 1999, colonoscopy in 1962, post-appendectomy 1962, rectal fissure operation in the past, hemorrhoidectomy, laparoscopy to be done, kidney stone, vasectomy, cataract surgery, left leg hematoma evacuation due to the injury in the past, eye surgery, tonsillectomy, arthroscopic knee surgery, bilateral knee surgery in the past, generator change 3 times on the device. REVIEW OF SYSTEMS: Chest pain, shortness of breath. PHYSICAL EXAMINATION: VITAL SIGNS: He has got a birthmark on his left side of the face and 5 feet 10 inches, 168 pounds, 120/70 blood pressure, pulse is 60, respirations 16 and 97.5 temperature and 24.1 BMI. GENERAL: Lean, thin, aesthetically build. HEENT: Unremarkable except a birthmark. NECK: No JVD. No definite carotid bruits. LUNGS: Showed poor air entry bilaterally. HEART: Sounds normal. ABDOMEN: Soft, nontender, no organomegaly. EXTREMITIES: Distal pulses fairly well felt. NEUROLOGIC: No focal neuro deficit is documented. IMPRESSION: Abnormal myocardial perfusion scan, crescendo angina, hypertension, diabetes, post-bypass status, history of chronic kidney disease, improved with a creatinine of 1.67. PLAN: Cardiac catheterization on 08/05/2022. Johnson Hercules MD DR: ROSARIO/JHONNY/JANIS TID: [id number] RECEIPT: [id number]
[2022-08-05] VITALS (10 sets, daily range): BP systolic 119–134; BP diastolic 62–91
[~2022-08-05] VITALS: Ht 177.8 cm; Wt 76.5 kg
[~2022-08-05 07:00] MED LIST changes: +INSU100V13 SQ; +NITR0.4T26 SL; +NS 1000ML 1,000 ML ONE; +PHENERGAN ONE; +RANO500T2 PO; +VALIUM ONE
[2022-08-05] MEDS ORDERED: NS 1000ML 1,000 ML ONE (07:59)
[2022-08-05] MEDS ORDERED: HEPARIN ONE (07:59)
[2022-08-05] MEDS ORDERED: XYLOCAINE 2% 5ML VIAL ONE (07:59)
[2022-08-05] MEDS ORDERED: SUBLIMAZE ONE (08:00)
[2022-08-05] MEDS ORDERED: VERSED ONE (08:00)
[2022-08-05] MEDS ORDERED: VALIUM PO ONE (08:00)
[2022-08-05] MEDS ORDERED: NS 1000ML 1,000 ML IV SCH (08:00)
[2022-08-05] MEDS ORDERED: PHENERGAN PO ONE (08:00)
[2022-08-05] MEDS ORDERED: TYLENOL PO PRN (11:30)
[2022-08-05] MEDS ORDERED: D5W-1/2 NS/KCL 20MEQ 1,000 ML IV SCH (11:30)
[2022-08-05] MEDS ORDERED: NORCO 5MG PO PRN (11:30)
[2022-08-05] MEDS ORDERED: RESTORIL PO PRN (11:30)
[2022-08-05] MEDS ORDERED: NITROSTAT SL SCH (11:30)
[2022-08-05] MEDS ORDERED: SUBLIMAZE IV PRN (11:30)
[2022-08-05] MEDS ORDERED: COZAAR PO SCH (11:30)
[2022-08-05] MEDS ORDERED: KEFLEX PO SCH (15:00)
[2022-08-05] MEDS ORDERED: RANEXA PO SCH (21:00)
[2022-08-05] MEDS ORDERED: LOPRESSER PO SCH (21:00)
--- NOTE | 2022-08-06 00:26 | OPH ---
DATE OF SURGERY: 08/05/2022 DICTATOR NAME: Johnson Hercules MD PRECATHETERIZATION DIAGNOSES: Abnormal myocardial perfusion scan with lateral and anterior wall ischemic substrate with history of coronary artery disease with multivessel coronary artery bypass surgery with insulin-dependent diabetes mellitus, hypertension, dyslipidemia, having significant crescendo angina, almost refractory angina on optimal medical therapy, assess for severity of coronary artery disease. POSTCATHETERIZATION DIAGNOSES: Diffuse narrowing of the left main was noted. LAD was 100% occluded proximally. The left internal mammary arterial conduit was fully patent, filling the whole distal LAD, which had some tortuosity, but no significant flow restriction was documented. The first diagonal branch, 100% occluded. The saphenous vein graft to the first diagonal branch was showing diffuse narrowing and it was a small caliber graft with a small caliber diagonal branch, but the filling was still noted and the flow was best described with ARIEL 1 to ARIEL 2 flow. Circumflex 100% occluded proximally. The saphenous vein graft to the circumflex was patent with proximal concentric 30-40% narrowing with luminal irregularity along the course of the graft with good filling of the first obtuse marginal branch and part of the little shell tribe circumflex branch. Right coronary artery is 100% occluded proximally. Saphenous vein graft to the right coronary artery was a large graft with some luminal irregularity in the body of the graft with good filling of the posterior descending branch and retrograde filling of the distal right coronary artery. The left ventricle is mildly dilated with distal anterior apical and adjacent inferior hypokinesis with ejection fraction of 40-45% with left ventricular end-diastolic pressure of 0-5 mm. No mitral regurgitation was noted. ANESTHESIA: 2% lidocaine. PREOPERATIVE MEDICATIONS: Phenergan 25 mg p.o., Valium 2.5 mg p.o., fentanyl 25 mcg IV, Versed 1 mg IV. ANTICOAGULATION: Heparin 2000 units in the flush solution, 1000 units in the dye solution, 2000 units intra-arterially. DYE USED: Omnipaque. Total amount 157 mL. CATHETERS: JL4 6-Barbadian, JR4 6-Barbadian, 5-Barbadian right JAKE catheter 5-Barbadian AR modified catheter, 6-Barbadian angled pigtail catheter. ARTERIAL TIME: 23 minutes. FLUOROSCOPY TIME: 8.5 minutes. PROCEDURES: Left heart catheterization, bilateral selective coronary arteriography, left ventriculography, and saphenous vein graft cineangiography and NEGRON graft cineangiography by right femoral Rose approach. NARRATION OF THE PROCEDURE: Under local anesthesia, right femoral artery was punctured percutaneously and a guidewire was passed in the right femoral artery and 7-Barbadian Cordis sheath was introduced and side port of the sheath used for continuous monitoring of femoral artery pressure. Subsequently, a 2000 units of Heparin intra-arterially was given and a JR4 6-Barbadian right coronary catheter was initially mounted over a guidewire and navigated across the ascending aorta and initially left subclavian artery was cannulated and left internal mammary graft was attempted to be cannulated selectively and NEGRON graft cineangiography was performed in AP and GIBSON projection. This catheter was then placed in the right coronary artery and right coronary arteriography was done followed by a saphenous vein graft and cineangiography to the right coronary artery and saphenous vein graft cineangiography to the diagonal branch and saphenous vein graft cineangiography to the obtuse marginal branch with the same catheter and subsequently a JAKE catheter was used for better visualization of the saphenous vein graft to the right coronary artery and JR5 modified 2 catheter was utilized for better visualization of the saphenous vein graft to the obtuse marginal branch, both in IGBSON and MING projections. After all this catheters, the exchange was made with a JL4 6-Barbadian, left coronary artery and left coronary artery was cannulated and left coronary arteriography performed in AP and GIBSON projection. Two shocks were taken after that, the catheter was exchanged with 6-Barbadian angled pigtail catheter and a pigtail was navigated across the aortic valve and hemodynamics were measured and left ventriculography was performed in 30-degree GIBSON projection with 30 mL of Isovue at 12 mL per second at 600 psi. The patient tolerated the procedure well. The pullback pressures were obtained. Angio-Seal deployed in the right femoral artery. No complication of the procedure. FINAL CONCLUSION: LVEDP is 0-5 mm, LV pressure 127/5, femoral artery pressure 120/46 with a mean of 73. No gradient across the aorta. FINAL CONCLUSION: Left main diffuse disease. LAD is 100% occluded. Circumflex 100% occluded. Diagonal branch 100% occluded. Right coronary artery is 100% occluded. All arteries were occluded proximally. NEGRON graft to the LAD patent, vein graft to the diagonal, diffuse disease of the graft along with diffuse disease of the diagonal, very poor flow was documented. Obtuse marginal branch was patent with proximal 40% narrowing. Saphenous vein graft to the right coronary artery is patent with full visualization of the posterior descending branch. LV systolic dysfunction of the apex and adjacent inferior wall 45% ejection fraction. RECOMMENDATION: Optimization of the medical therapy. Johnson Hercules MD DR: OLIVA TID: [id number] RECEIPT: [id number]
[2022-08-06] MEDS ORDERED: ASPIRIN PO SCH (09:00)
[2022-08-06] MEDS ORDERED: SYNTHROID PO SCH (09:00)
[2022-08-06] MEDS ORDERED: PROSCAR PO SCH (09:00)
[2022-08-06] MEDS ORDERED: ZYLOPRIM PO SCH (09:00)
== END 2022-08-05 12:32 | disposition home or self-care (01) ==
LOC: SDC 07:00
PROVIDERS: ATTEND Specialist
DX: I25.10 Atherosclerotic heart disease of native coronary artery without angina pectoris (principal); I11.0 Hypertensive heart disease with heart failure; I50.32 Chronic diastolic (congestive) heart failure; E11.9 Type 2 diabetes mellitus without complications; E78.5 Hyperlipidemia, unspecified; E03.9 Hypothyroidism, unspecified; Z88.0 Allergy status to penicillin; Z95.5 Presence of coronary angioplasty implant and graft; Z98.890 Other specified postprocedural states; Z79.899 Other long term (current) drug therapy; Z90.49 Acquired absence of other specified parts of digestive tract; Z98.52 Vasectomy status; Z98.49 Cataract extraction status, unspecified eye; Z79.82 Long term (current) use of aspirin; Z79.890 Hormone replacement therapy
CPT/HCPCS: 85025; 36415; 85610; 85730; 93459; 82948 ×2; 99153; 99152; J7030 ×2; J1644 ×2; C1894 ×3; J2001; J2250; J3010; C1760; Q9967; 93458; C1769

== ENCOUNTER → 2023-10-05 | Outpatient (CLI) | payer MEDICARE, OTHER ==
[~2023-10-05] MED LIST changes: +BIMA2.5D OP; +BRIM5DRO6 OP; -GLIP5TAB10 PO; +GLIP5TAB19 PO; -NS 1000ML 1,000 ML ONE; -PHENERGAN ONE; -VALIUM ONE
== END | disposition home or self-care (01) ==
LOC: RAD 09:20
PROVIDERS: ATTEND Specialist
DX: I25.10 Atherosclerotic heart disease of native coronary artery without angina pectoris (principal); E11.9 Type 2 diabetes mellitus without complications; Z95.0 Presence of cardiac pacemaker; Z95.1 Presence of aortocoronary bypass graft
CPT/HCPCS: 78452; A9500

== ENCOUNTER 2023-11-16 08:09 | Day surgery (SDC) | payer MEDICARE, OTHER ==
[2023-11-16] VITALS (10 sets, daily range): BP systolic 118–141; BP diastolic 54–79; PULSE 60–67; RESP 16–18; TEMP 97.4–97.6; O2SAT 94–99
[~2023-11-16] VITALS: Ht 175.3 cm; Wt 72.6 kg
[~2023-11-16 08:09] MED LIST changes: +HEPARIN ONE; +NS 1000ML 1,000 ML ONE; +PHENERGAN ONE; +SUBLIMAZE 100MCG/2ML ONE; +VALIUM ONE; +VERSED ONE; +XYLOCAINE ONE
[2023-11-16] MEDS: NS 1000ML 1,000 ML IV ONE (08:44)
[2023-11-16] MEDS: VALIUM PO ONE (08:44)
[2023-11-16] MEDS: PHENERGAN PO ONE (08:44)
[2023-11-16 09:00] LABS: EOSINOPHIL # 0.1 10^3/uL (0.0-0.2); EOSINOPHIL % 1.5 % (0.0-5.0); HEMATOCRIT(ML) 38.3 % (37.0-53.0); HEMOGLOBIN 12.9 g/dL (13.9-16.3); IG % 0.5 % (0.00-0.50); LYMPHOCYTES # 0.96 10^3/uL1 (1.0-4.8); LYMPHOCYTES % 16.4 % (24.0-44.0); MEAN CORP HGB 31.5 pg (26-34); MEAN CORP HGB CONCENTRATION 33.7 g/dL (33-36.5); MEAN CORP VOLUME 93.6 fL (78-100); MONOCYTES # 0.6 10^3/uL (0.3-0.8); MONOCYTES % 9.4 % (5.0-12.0); NEUTROPHIL # 4.2 10^3/uL (1.8-7.7); NEUTROPHILS % 72.2 % (41.0-85.0); RED BLOOD CELL 4.09 10^6/uL (4.50-5.90); RED CELL DISTRIBUTION WIDTH 13.4 % (11.5-14.5); WHITE BLOOD CELL 5.9 10^3/uL (4.5-11.0)
[2023-11-16 09:14] LABS: PROTHROMBIN PROTIME 10.7 SEC (9.7-11.6)
== END 2023-11-16 13:50 | disposition home or self-care (01) ==
LOC: SURG 08:09
PROVIDERS: ATTEND Specialist
DX: I25.10 Atherosclerotic heart disease of native coronary artery without angina pectoris (principal); I25.82 Chronic total occlusion of coronary artery; R55 Syncope and collapse; Q25.49 Other congenital malformations of aorta; E11.22 Type 2 diabetes mellitus with diabetic chronic kidney disease; I13.0 Hypertensive heart and chronic kidney disease with heart failure and stage 1 through stage 4 chronic kidney disease, or unspecified chronic kidney disease; N18.9 Chronic kidney disease, unspecified; I50.42 Chronic combined systolic (congestive) and diastolic (congestive) heart failure; E78.5 Hyperlipidemia, unspecified; E03.9 Hypothyroidism, unspecified; Z79.01 Long term (current) use of anticoagulants; Z79.899 Other long term (current) drug therapy; Z82.49 Family history of ischemic heart disease and other diseases of the circulatory system; Z83.3 Family history of diabetes mellitus; Z95.1 Presence of aortocoronary bypass graft; Z79.4 Long term (current) use of insulin; Z90.49 Acquired absence of other specified parts of digestive tract; Z98.890 Other specified postprocedural states; Z90.89 Acquired absence of other organs; Z98.52 Vasectomy status; Z79.84 Long term (current) use of oral hypoglycemic drugs; Z79.82 Long term (current) use of aspirin; Z79.890 Hormone replacement therapy; Z88.0 Allergy status to penicillin
CPT/HCPCS: 93459; 85025; 82948; 36415; 85610; 85730; 99152; J7030 ×2; J1644 ×2; C1894 ×4; A6258; J2250; J3010; C1760; Q9967; 93455